=== PATIENT | male | born 1965 | race Caucasian/White ===

== ENCOUNTER 2021-08-02 18:21 | Outpatient (CLI) | payer OTHER, SELFPAY ==
[2021-08-02 18:15] VITALS: BP 126/80; PULSE 98; RESP 16; TEMP 37.1; O2SAT 97; BMI 28.7
[2021-08-02 18:50] VITALS: BP 144/79; PULSE 82; RESP 16; TEMP 37.1; O2SAT 99
[2021-08-02 19:41] VITALS: BP 123/81; PULSE 79; RESP 16; TEMP 36.8; O2SAT 98
== END 2021-08-02 23:59 | disposition home or self-care (01) ==
LOC: MS3OUT 18:22 → MS3 18:22
PROVIDERS: PCP Family Medicine; Visit Provider Nurse Practitioner Adult Health
DX: Z23 Encounter for immunization (principal); U07.1 COVID-19
CPT/HCPCS: J7050; M0243; Q0240